=== PATIENT | male | born 1990 | race African-American/Black ===

== ENCOUNTER 2018-03-02 10:29 | Emergency (ER) | payer SELFPAY ==
[~2018-03-02] VITALS: Ht 152.4 cm; Wt 54.0 kg
[~2018-03-02 10:29] MED LIST: FERR324T4 PO; PRED20 PO; PROT40TA PO
[2018-03-02 10:38] VITALS: BP 112/58; PULSE 74; RESP 15; TEMP 98.2; O2SAT 99
[2018-03-02] MEDS ORDERED: NAPR1TAB98 PO (10:45)
--- NOTE | 2018-03-02 10:45 | PD ---
HPI Chief Complaint: Musculoskeletal Complaint Time Seen by Provider: 10:44 Travel History International Travel<30 days: No Contact w/Intl Traveler<30days: No Traveled to known affect area: No History of Present Illness HPI 20-year-old male presents to the ED for evaluation of 6/10 left ankle pain and right hip pain after an accident at work. Patient states that the pallet lisseth fell over and he got his foot caught inside a palate and hit his hip on the pallet lisseth when he fell. He denies hitting his head or loss of consciousness. He has been ambulatory since the accident. He denies numbness, tingling, weakness, limitations to range of motion of the extremities. Denies previous injury to either area. No treatment attempted before arrival. PFSH Past Medical History Cancer: No Cardiovascular Problems: No Diminished Hearing: No Endocrine: No Genitourinary: No Immune Disorder: No Musculoskeletal: No Neurologic: No Psychiatric: No Respiratory: No Past Surgical History Pacemaker: No Social History Alcohol Use: No Tobacco Use: No Substance Use: Yes ([facility]) Allergies-Medications (Allergen,Severity, Reaction): Coded Allergies: No Known Allergies (Verified Adverse Reaction, Unknown, 03/02/18) Reported Meds & Prescriptions Reported Meds & Active Scripts Active Ibuprofen 600 Mg Tab 600 Mg PO Q8H PRN Reported Aleve PM (Naproxen Sodium-Diphenhydramine) 220-25 Mg Tab 1 Tab PO HS PRN Review of Systems Except as stated in HPI: all other systems reviewed are Neg Physical Exam Narrative GENERAL: Thin, petite -[place] male in no acute distress. SKIN: Focused skin assessment warm/dry. HEAD: Normocephalic. EYES: No scleral icterus. No injection or drainage. NECK: Supple, trachea midline. No JVD or lymphadenopathy. CARDIOVASCULAR: Regular rate and rhythm without murmurs, gallops, or rubs. RESPIRATORY: Breath sounds clear and equal bilaterally. No accessory muscle use. GASTROINTESTINAL: Abdomen soft, non-tender, nondistended. Extensive well- healed scarring on the abdomen without signs of infection. Stoma partially herniated and peristalsing, pink, moist, yellow stool in the bag. MUSCULOSKELETAL: No cyanosis, or edema. FOCUSED RIGHT LOWER EXTREMITY EXAM: Tenderness to palpation of the right iliac crest. No foreshortening or rotation of the right lower extremity. No pain elicited with internal and external rotation, flexion and extension. FOCUSED LEFT LOWER EXTREMITY EXAM: 2+ DP pulse. Positive squeeze test. Positive tenderness to palpation of the medial malleolus. No tenderness to palpation of the lateral malleolus. No base of the fifth or navicular tenderness. Patient is able to flex and extend the ankle, flex and extend the toes. Sensation intact to light touch distally. Cap refill less than 2 seconds distally. BACK: Nontender without obvious deformity. No CVA tenderness. Data Data Last Documented VS Vital Signs Date Time Temp Pulse Resp B/P (MAP) Pulse Ox O2 Delivery O2 Flow Rate FiO2 03/02/18 10:38 98.2 74 15 112/58 (76) 99 Orders Orders Ankle, Complete ([id number]) (03/02/18 10:52) Hip, Uni(Ap&Lat) Wo Ap Pelvis (03/02/18 10:52) Ketorolac Inj (Toradol Inj) (03/02/18 11:00) Maximo Bandage (03/02/18 11:51) Ed Discharge Order (03/02/18 11:53) MDM Medical Decision Making Medical Screen Exam Complete: Yes Emergency Medical Condition: Yes Differential Diagnosis Musculoskeletal pain versus contusion versus sprain versus fracture versus other Narrative Course 20-year-old male presents to the ED for evaluation of 6/10 left ankle pain and right hip pain after an accident at work. Patient states that the pallet lisseth fell over and he got his foot caught inside a palate and hit his hip on the pallet lisseth when he fell. He denies hitting his head or loss of consciousness. He has been ambulatory since the accident. Vitals reviewed. On exam the patient has point tenderness of the right iliac crest. Squeeze test positive. Tender to palpation of the medial malleolus of the left foot. Exam otherwise unremarkable. Patient was administered 30 mg IM Toradol. X-rays reveal no acute bony injury per radiology read. This is ankle sprain. Patient was provided with a Maximo wrap, short course of anti-inflammatories. He is instructed to use RICE therapy, return to normal, gentle activity as tolerated, follow with primary care provider. He is stable and discharged home. Diagnosis Primary Impression: Left ankle sprain Qualified Codes: S93.402A - Sprain of unspecified ligament of left ankle, initial encounter Additional Impression: Contusion of right hip Qualified Codes: S70.01XA - Contusion of right hip, initial encounter Referrals: Primary Care Physician Additional Instructions: Rest, ice, elevate the extremity. Apply ice no longer than 10-15 minutes per hour a few times a day. 600 mg ibuprofen up to 3 times a day as needed for pain. Return to normal, gentle activity as tolerated. No running, jumping activities for the next few weeks. Follow up with orthopedist or your primary care provider. Return to the ED for any urgent or emergent medical condition. Med/Other Pt SpecificInfo: Prescription(s) given Scripts Ibuprofen (Ibuprofen) 600 Mg Tab 600 MG PO Q8H Y for PAIN, #12 TAB 0 Refills Prov: Erum Kapadia MD 03/02/18 Disposition: 01 DISCHARGE HOME Condition: Stable Diana Pollock March 02, 2018 10:45
[2018-03-02] MEDS ORDERED: KETOROLAC TROMETHAMINE 60 MG/2 ML (IM) VIAL IM ONE (11:00)
--- NOTE | 2018-03-02 11:42 | RADRPT ---
EXAM DATE: 03/02/2018 11:31 AM EDT AGE/SEX: 28 years / Male INDICATIONS: Left ankle pain after becoming caught in pallet. CLINICAL DATA: This is the patient's initial encounter. Patient reports that signs and symptoms have been present for 2 days and indicates a pain score of 10/10. MEDICAL/SURGICAL HISTORY: None. Colostomy. COMPARISON: No prior [facility] exams available for comparison. FINDINGS: Bony structures are intact and in normal alignment. Joints are intact without dislocation or significant arthropathy. Osseous density is normal. Soft tissues are unremarkable. No radiopaq ue foreign bodies seen. CONCLUSION: No acute fracture or joint dislocation. Electronically signed by: Yury Menendez MD 03/02/2018 11:41 AM EDT
--- NOTE | 2018-03-02 11:44 | RADRPT ---
EXAM DATE: 03/02/2018 11:31 AM EDT AGE/SEX: 28 years / Male INDICATIONS: Right hip pain after falling onto pallet lisseth. CLINICAL DATA: This is the patient's initial encounter. Patient reports that signs and symptoms have been present for 2 days and indicates a pain score of 8/10. MEDICAL/SURGICAL HISTORY: None. Colostomy. COMPARISON: No prior [facility] exams available for comparison. FINDINGS: Bony structures are intact and in normal alignment. Joints are intact without dislocation or significant arthropathy. Osseous density is normal. Soft tissues are unremarkable. No radiopaq ue foreign bodies seen. CONCLUSION: No acute fracture or joint dislocation. Electronically signed by: Yury Menendez MD 03/02/2018 11:42 AM EDT
[2018-03-02] MEDS ORDERED: IBUP-232 PO (11:53)
== END 2018-03-02 12:13 | disposition home or self-care (01) ==
LOC: NEPK 10:29
DX: S93.402A Sprain of unspecified ligament of left ankle, initial encounter (principal); S70.01XA Contusion of right hip, initial encounter; W19.XXXA Unspecified fall, initial encounter; Y99.0 Civilian activity done for income or pay
CPT/HCPCS: 73502; 73610; 96372; 99283; J1885